=== PATIENT | female | born 2005 | race Caucasian/White ===

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

== ENCOUNTER → 2023-02-04 11:58 | Outpatient (CLI) | payer OTHER, SELFPAY | PROVIDERS: PCP Pediatrics; Referring Provider Pediatrics; Visit Provider Pediatrics | DX: R00.2 Palpitations (principal) | CPT/HCPCS: 93005 ==

== ENCOUNTER 2023-03-28 10:54 | Emergency (ER) | payer OTHER, SELFPAY ==
[2023-03-28 11:11] VITALS: BP 130/77; PULSE 98; RESP 18; TEMP 37.1; O2SAT 98; BMI 27.3
[2023-03-28 11:38] LABS: Strep Grp A by PCR Rapid Negative (Negative)
[2023-03-28 12:07] VITALS: BP 120/71; PULSE 95; RESP 18; O2SAT 96
--- NOTE | 2023-03-28 12:09 | ED.URI ---
HPI - URI/Sore Throat <Akin Egan PA-C - Last Filed: 03/28/23 12:12> General Chief Complaint: Upper Respiratory Symptoms Stated Complaint: sore throat/cough up black stuff lungs hurting Time Seen by Provider: 03/28/23 11:58 Source: patient Mode of arrival: Ambulatory History of Present Illness HPI Narrative: 17-year-old female presents to the ED with 3 days of cough, sore throat. Patient denies fever, chills, chest pain, shortness of breath, nausea, vomiting lightheadedness, dizziness, syncope. Patient states that she noticed some black flecks in her phlegm this morning which brought her to the ED. Related Data Previous Rx's Medication Instructions Recorded cyclobenzaprine 5 mg tablet 5 mg PO TID PRN muscle spasm #10 10/23/21 tabs ketorolac 10 mg tablet 10 mg PO Q8H PRN pain #20 tabs 11/05/21 methocarbamol 500 mg tablet 500 mg PO Q8H #20 tabs 11/05/21 ondansetron 4 mg disintegrating 4 mg PO Q8H PRN nausea and 11/05/21 tablet vomiting #14 tabs pantoprazole 40 mg tablet,delayed 40 mg PO DAILY #30 tabs 12/16/22 release (Protonix) Allergies Allergy/AdvReac Type Severity Reaction Status Date / Time albuterol Allergy Verified 03/28/23 11:11 azithromycin Allergy Verified 03/28/23 11:11 Review of Systems <Akin Egan PA-C - Last Filed: 03/28/23 12:12> Review of Systems ROS Unobtainable: All systems reviewed & are unremarkable except as noted in HPI and below Constitutional Constitutional: Denies chills, Denies fatigue, Denies fever(s), Denies frequent falls, Denies lethargy and Denies weakness Eyes Eyes: Denies change in vision, Denies eye discharge, Denies irritation and Denies loss of vision ENT Ears, Nose, Mouth, and Throat: Denies change in voice, Denies dizziness, Denies neck pain, Reports sore throat and Denies throat swelling Cardiovascular Cardiovascular: Denies chest pain, Denies irregular heart rhythm, Denies lightheadedness, Denies palpitations, Denies dyspnea, Denies dyspnea on exertion and Denies orthopnea Respiratory Respiratory: Reports cough, Denies dyspnea, Denies dyspnea on exertion and Denies wheezing Gastrointestinal Gastrointestinal: Denies abdominal pain, Denies change in bowel habits, Denies diarrhea, Denies nausea and Denies vomiting Genitourinary Genitourinary: Denies hematuria, Denies flank pain, Denies urinary incontinence and Denies urinary urgency Musculoskeletal Musculoskeletal: Denies back pain, Denies muscle weakness, Denies neck pain, Denies numbness and Denies tingling Integumentary/Breasts Skin/Breast: Denies pruritus, Denies erythema, Denies rash and Denies wounds Neurologic Neurologic: Denies behavioral changes, Denies confusion, Denies dizziness, Denies frequent falls, Denies loss of vision, Denies numbness, Denies tingling and Denies weakness Psychiatric Psychiatric: Denies anxiety, Denies behavioral changes, Denies confusion, Denies depression, Denies homicidal ideation and Denies suicidal ideation Endocrine Endocrine: Denies fatigue, Denies flushing and Denies palpitations Hematologic/Lymphatic Hematologic/Lymphatic: Denies easy bruising Allergic/Immunologic Allergic/Immunologic: Denies urticaria, Denies throat swelling and Denies wheezing Patient History <Akin Egan PA-C - Last Filed: 03/28/23 12:12> Medical History Healthy adolescent Social History Smoking Status: Never smoker substance use type: does not use Smoking Status: Never smoker alcohol intake frequency: holidays/special occasions only Substance Use Type: does not use Exam <Akin Egan PA-C - Last Filed: 03/28/23 12:12> Narrative Exam Narrative: Const General:?cooperative, healthy appearing and comfortable [facility] Head:?normal to inspection Ears:?hearing grossly normal bilaterally Nose:?external nose normal Face and sinus:?normal facial exam and sinuses nontender Mouth:?oral mucosae normal Throat:?posterior oropharynx normal Eyes General:?appearance normal, both eyes and all related structures Neck Neck:?normal visual inspection and no lymphadenopathy noted Resp Effort & Inspection:?normal respiratory effort Auscultation:?clear to auscultation bilaterally Cardio Rate:?regular rate Rhythm:?regular rhythm Neuro General:?patient alert, patient awake and patient oriented x3 Initial Vital Signs Initial Vital Signs: Vital Signs Temperature 98.7 F 03/28/23 11:11 Pulse Rate 98 H 03/28/23 11:11 Respiratory Rate 18 03/28/23 11:11 Blood Pressure 130/77 03/28/23 11:11 Pulse Oximetry 98 03/28/23 11:11 Oxygen Delivery Method Room Air 03/28/23 11:11 <Sobia Strong DO - Last Filed: 03/28/23 19:37> Initial Vital Signs Initial Vital Signs: Vital Signs Temperature 98.7 F 03/28/23 11:11 Pulse Rate 98 H 03/28/23 11:11 Respiratory Rate 18 03/28/23 11:11 Blood Pressure 130/77 03/28/23 11:11 Pulse Oximetry 98 03/28/23 11:11 Oxygen Delivery Method Room Air 03/28/23 11:11 Course <Akin Egan PA-C - Last Filed: 03/28/23 12:12> Orders Ordered: ED Orders 03/28/23 11:18 Strep Grp A by PCR Rapid Stat Throat Culture Stat 03/28/23 11:42 RT Consult Eval and Treat NOW Vital Signs Vital signs: Vital Signs - 8 hr 03/28/23 12:07 Pulse Rate 95 H Respiratory Rate 18 Blood Pressure 120/71 Pulse Oximetry 96 Oxygen Delivery Method Room Air <Sobia Strong DO - Last Filed: 03/28/23 19:37> Orders Ordered: ED Orders 03/28/23 11:18 Strep Grp A by PCR Rapid Stat Throat Culture Stat 03/28/23 11:42 RT Consult Eval and Treat NOW Vital Signs Vital signs: Vital Signs - 8 hr 03/28/23 12:07 Pulse Rate 95 H Respiratory Rate 18 Blood Pressure 120/71 Pulse Oximetry 96 Oxygen Delivery Method Room Air MDM - URI/Sore Throat <JAIDEN Colby Last Filed: 03/28/23 12:12> Lab Data Labs: Lab Results 03/28/23 Range/Units 11:18 Group A Strep (PCR) Negative (Negative) MDM Narrative Medical decision making narrative: 17-year-old female presents to the ED with 3 days of cough, sore throat. Strep test was negative. Sample will be sent to be cultured and patient will be informed if positive. Patient's symptoms most consistent with a viral upper respiratory infection. Discussed supportive care with Tylenol, ibuprofen, [id number] cough medications. Recommend good hydration. Recommend follow-up with PCP as soon as possible. ED return precautions were discussed with patient. Patient verbalized understanding. Medical records reviewed: Yes <Sobia Strong DO - Last Filed: 03/28/23 19:37> Lab Data Labs: Lab Results 03/28/23 Range/Units 11:18 Group A Strep (PCR) Negative (Negative) Discharge Plan Departure Patient Disposition: Home Clinical Impression: Upper respiratory infection Instructions: DI for Viral Upper Respiratory Infection -- Adult Activity Restrictions/Additional Instructions: You were evaluated in the ED today for a cough, sore throat. Your strep test was negative, it will be sent for a culture and we will call you if the culture is positive. Your symptoms are likely due to a viral upper respiratory infection. You may take Tylenol, ibuprofen, [id number] cough syrup for symptom relief. Please follow-up with your well tester as soon as possible. Return to the ED if you experience any trouble breathing or chest pain. Prescriptions: No Action pantoprazole [Protonix] 40 mg tablet,delayed release (DR/EC) 40 mg PO DAILY Qty: 30 0RF cyclobenzaprine 5 mg tablet 5 mg PO TID PRN (Reason: muscle spasm) Qty: 10 0RF methocarbamol 500 mg tablet 500 mg PO Q8H Qty: 20 0RF ketorolac 10 mg tablet 10 mg PO Q8H PRN (Reason: pain) Qty: 20 0RF ondansetron 4 mg tablet,disintegrating 4 mg PO Q8H PRN (Reason: nausea and vomiting) Qty: 14 0RF Referrals: Patricia Luong MD [Primary Care Provider] - Stand Alone Forms: Patient Portal/API <Sobia Strong DO - Last Filed: 03/28/23 19:37> Cosign ED Attending Graceature Attestation: I was immediately available in the department for consultation. Documentation has been reviewed.
== END 2023-03-28 12:13 | disposition home or self-care (01) ==
PROVIDERS: Emergency Medicine; Emergency Provider Student in an Organized Health Care Education/Training Program; PCP Pediatrics
DX: J06.9 Acute upper respiratory infection, unspecified (principal); J02.9 Acute pharyngitis, unspecified
CPT/HCPCS: 87070; 87651; 99282

== ENCOUNTER → 2023-10-27 15:58 | Outpatient (CLI) | payer OTHER, MEDICAID, SELFPAY | PROVIDERS: PCP Pediatrics; Visit Provider Physician Assistant | DX: J02.9 Acute pharyngitis, unspecified (principal) | CPT/HCPCS: 87070; 87880 ==

== ENCOUNTER → 2023-12-24 17:36 | Outpatient (CLI) | payer OTHER, MEDICAID, SELFPAY ==
[2023-12-24 18:11] LABS: Pregnancy Test Urine Negative (Negative)
== END ==
PROVIDERS: PCP Family Medicine; Visit Provider Nurse Practitioner Family
DX: Z72.51 High risk heterosexual behavior (principal); R39.9 Unspecified symptoms and signs involving the genitourinary system; N89.8 Other specified noninflammatory disorders of vagina
CPT/HCPCS: 81002; 81025; 87086; 87210

== ENCOUNTER 2023-12-27 22:08 | Emergency (ER) | payer OTHER, MEDICAID, SELFPAY ==
[2023-12-27 22:12] VITALS: BP 146/87; PULSE 114; RESP 18; TEMP 36.7; O2SAT 97; BMI 35.1
--- NOTE | 2023-12-27 23:49 | ED_ITS ---
HPI - General Adult General Chief complaint: Urogenital-Female Stated complaint: yeast infection Time Seen by Provider: 12/27/23 23:36 Source: patient Mode of arrival: Ambulatory History of Present Illness HPI narrative: Patient is a 18-year-old female. Was recently diagnosed with a yeast infection. Has taken 1 pill of fluconazole. Is supposed to take a 2nd dose within the next 24 hours. Reports no improvement of symptoms. Was told to come to the emergency department for a ?STD check. No history of sexually transmitted diseases. Is sexually active. Is having vaginal discharge and irritation. No fevers. No skin changes. Related Data Previous Rx's Medication Instructions Recorded triamcinolone acetonide 0.1 % 1 applic topical TID #60 mL 11/03/23 lotion mupirocin 2 % topical ointment 1 applic topical TID #22 grams 11/24/23 fluoxetine 10 mg capsule 10 mg PO DAILY #30 caps 11/29/23 hydroxyzine HCl 25 mg tablet 25 mg PO DAILY PRN anxiety #30 tabs 11/29/23 fluconazole 150 mg tablet 150 mg PO Q3D 2 doses #2 tabs 12/24/23 clotrimazole 1 % vaginal cream 1 appful vaginal BEDTIME 7 days 12/28/23 #45 grams Allergies Allergy/AdvReac Type Severity Reaction Status Date / Time albuterol Allergy Seizure Verified 12/27/23 22:11 azithromycin AdvReac Hives Verified 12/27/23 22:11 Review of Systems Gastrointestinal Gastrointestinal: Reports system reviewed and no additional complaints, except as documented Genitourinary Genitourinary: Reports system reviewed and no additional complaints, except as documented Patient History Medical History Depression Anxiety ADHD Pigmented skin lesion Hyperinsulinemia Healthy adolescent Surgical History (Updated 11/07/23 @ 20:34 by Tracy Zamora) Anesthesia History of dental surgery History of colonoscopy (~10/11/23) History of endoscopy (~10/11/23) Family History (Updated 11/03/23 @ 11:18 by Jerrica Benavides MD) Mother Celiac disease Social History details: partner number of children: 0 household members: significant other housing: apartment Previous occupational history: [employer] Smoking Status: Never smoker alcohol intake: current substance use type: does not use Smoking Status: Never smoker alcohol intake frequency: holidays/special occasions only Substance Use Type: does not use Exam Initial Vital Signs Initial Vital Signs: Vital Signs Temperature 98.0 F 12/27/23 22:12 Pulse Rate 114 H 12/27/23 22:12 Respiratory Rate 18 12/27/23 22:12 Blood Pressure 146/87 H 12/27/23 22:12 Pulse Oximetry 97 12/27/23 22:12 Oxygen Delivery Method Room Air 12/27/23 22:12 HENMT Head: normal to inspection and normocephalic Resp Effort & Inspection: normal respiratory effort Cardio Rate: regular rate GI Inspection: non-distended Course Orders Ordered: ED Orders 12/27/23 23:50 Chlamydia Gonorrhea PCR -URINE Stat 12/28/23 00:22 Test Urine Stat Vital Signs Vital signs: Vital Signs - 8 hr 12/27/23 22:12 12/28/23 00:56 12/28/23 02:12 Temperature 98.0 F 98 F Pulse Rate 114 H 96 H 82 Respiratory Rate 18 18 18 Blood Pressure 146/87 H 137/74 134/74 Pulse Oximetry 97 98 98 Oxygen Delivery Method Room Air Room Air Room Air Medical Decision Making Medical Records Medical records reviewed: Yes I reviewed the patient's medical records. Lab Data Lab results reviewed: Yes I reviewed the patient's lab results. Labs: Lab Results 12/27/23 12/28/23 Range/Units 23:50 00:22 Urine Test Negative (Negative) Ur Chlamydia DNA (PCR) Not detected N gonorrhoeae DNA (PCR) Not detected MDM Narrative Medical decision making narrative: Review of her medical record shows that she did have a swab that was negative for clue cells but was positive for yeast. Today her test was negat alexandre. Her GC and chlamydia were negative. She has only had 1 dose of the fluconazole and it is potentially that she needs the 2nd dose what she is supposed to take within the next 24 hours in order for her symptoms to improve. Because she is having such persistent symptoms will treat with clotrimazole cream as well. Do not feel that repeating any of the swabs today would change the clinical course. She was given return precautions. He expressed understanding Discharge Plan Departure Patient Disposition: Home Clinical Impression: Vaginal yeast infection Instructions: DI for Vaginal Yeast Infection Activity Restrictions/Additional Instructions: I recommend that you continue with the fluconazole. A prescription for a cream was sent to the pharmacy of your choice. Contact your primary provider for follow-up. Return to the emergency department for new symptoms. Prescriptions: New clotrimazole 1 % cream 1 appful vaginal BEDTIME 7 Days Qty: 45 0RF No Action triamcinolone acetonide 0.1 % lotion 1 applic topical TID Qty: 60 2RF mupirocin 2 % ointment 1 applic topical TID Qty: 22 0RF hydroxyzine HCl 25 mg tablet 25 mg PO DAILY PRN (Reason: anxiety) Qty: 30 1RF fluoxetine 10 mg capsule 10 mg PO DAILY Qty: 30 1RF fluconazole 150 mg tablet 150 mg PO Q3D 0 Days Qty: 2 0RF Rx Instructions: One tablet today, next tablet in 3 days Referrals: Jerrica Benavides MD [Primary Care Provider] - Stand Alone Forms: Patient Portal/API
[2023-12-28 00:23] LABS: Pregnancy Test Urine Negative (Negative)
[2023-12-28 00:56] VITALS: BP 137/74; PULSE 96; RESP 18; O2SAT 98
[2023-12-28 01:26] LABS: Urine N gonorrhoeae NOT DETECTED
[2023-12-28 01:31] LABS: Urine Chlamydia NOT DETECTED
[2023-12-28 02:12] VITALS: BP 134/74; PULSE 82; RESP 18; TEMP 36.6; O2SAT 98
== END 2023-12-28 02:10 | disposition home or self-care (01) ==
PROVIDERS: Emergency Provider Emergency Medicine; PCP Family Medicine
DX: B37.31 Acute candidiasis of vulva and vagina (principal); Z11.3 Encounter for screening for infections with a predominantly sexual mode of transmission
CPT/HCPCS: 81025; 87491; 87591; 99282